=== PATIENT | female | born 1990 | race Caucasian/White ===

== ENCOUNTER 2020-11-19 01:42 | Emergency (ER) | payer OTHER ==
[2020-11-19] MEDS ORDERED: CLOMIPHENE CITR50 MG PO (01:50)
[2020-11-19 02:25] LABS: HEMATOCRIT 40.4 % (37.0-47.0); HEMOGLOBIN 13.6 g/dL (12.5-16.0); MEAN CELL VOLUME 87 fl (78-100); MEAN CORPUSCULAR HEMOGLOBIN 29 pg (27-31); MEAN CORPUSCULAR HGB CONC 34 g/dL (33-37); MEAN PLATELET VOLUME 10.6 fl (7.4-10.4); PLATELET COUNT 283 K/mm3 (130-400); RED BLOOD COUNT 4.64 M/mm3 (4.10-5.30); RED CELL DISTRIBUTION WIDTH 13.1 % (11.5-14.5); WHITE BLOOD COUNT 18.1 K/mm3 (4.8-10.8)
[2020-11-19 02:29] LABS: ALBUMIN 4.1 g/dL (3.5-5.0); POTASSIUM 3.5 mmol/L (3.5-5.1)
[2020-11-19 02:32] LABS: TOTAL PROTEIN 7.1 g/dL (6.4-8.3)
[2020-11-19 02:33] LABS: TOTAL BILIRUBIN 0.5 mg/dL (0.2-1.2)
[2020-11-19 02:51] LABS: URINE WBC 0 /hpf (0-3)
[2020-11-19 02:51] LABS: BAND 2 % (0-10); LYMPHOCYTE 2 % (20-51); MONOCYTE 8 % (3-10); NEUTROPHILS 88 % (42-75)
[2020-11-19 02:53] LABS: URINE APPEARANCE HAZY; URINE BILIRUBIN NEGATIVE (NEGATIVE); URINE BLOOD TRACE (NEGATIVE); URINE COLOR YELLOW; URINE GLUCOSE NEGATIVE (NEGATIVE); URINE KETONE 2+ (NEGATIVE); URINE LEUKOCYTE ESTERASE NEGATIVE (NEGATIVE); URINE NITRATE NEGATIVE (NEGATIVE); URINE PROTEIN(semi-quant) TRACE mg/dL (NEGATIVE); URINE UROBILINOGEN NORMAL (NORMAL)
[2020-11-19 02:58] LABS: URINE MUCUS PRESENT (NOT PRESENT)
[2020-11-19 06:23] VITALS: BP 91/54
== END 2020-11-19 06:48 | disposition short-term general hospital (02) ==
LOC: ED 01:42
PROVIDERS: Internal Medicine; Physician Assistant
DX: K35.80 Unspecified acute appendicitis (principal); Z20.822 Contact with and (suspected) exposure to COVID-19
CPT/HCPCS: J2405; J2543; J3010; J7030; Q9967